=== PATIENT | male | born 1995 | race Caucasian/White ===

== ENCOUNTER → 2016-07-16 | Outpatient (CLI) | payer OTHER ==
--- NOTE | 2016-07-16 14:10 | RADRPT ---
EXAM DATE/TIME: 07/16/2016 13:52 [facility] COMPARISON: No previous studies available for comparison. INDICATIONS : Fall. Right knee pain. Right knee bent inward. MEDICAL HISTORY : None. SURGICAL HISTORY : None. ENCOUNTER: Initial ACUITY: 1 day PAIN SCORE: 5/10 LOCATION: Right knee FINDINGS: Two view examination of the right knee demonstrates no evidence of fracture or dislocation. Bony min eralization is normal. The suprapatellar soft tissues have a normal configuration. CONCLUSION: 1. Negative examination of the knee. Wallace Hernandez MD on July 16, 2016 at 14:08 Board Certified Radiologist. This report was verified electronically.
--- NOTE | 2016-07-16 14:10 | RADRPT ---
EXAM DATE/TIME: 07/16/2016 13:53 [facility] COMPARISON: No previous studies available for comparison. INDICATIONS : Fall. Right lateral ankle pain. MEDICAL HISTORY : None. SURGICAL HISTORY : None. ENCOUNTER: Initial ACUITY: 1 day PAIN SCORE: 5/10 LOCATION: Right lateral ankle FINDINGS: There is no evidence of acute fracture. Bony mineralization is normal. Joint effusion is present. The ankle mortise is intact. Joint spaces are maintained. CONCLUSION: 1. Joint effusion. There is no evidence of acute fracture. Wallace Hernandez MD on July 16, 2016 at 14:08 Board Certified Radiologist. This report was verified electronically.
== END ==
LOC: HRAD 13:34
DX: S89.91XA Unspecified injury of right lower leg, initial encounter (principal); X58.XXXA Exposure to other specified factors, initial encounter
CPT/HCPCS: 73560; 73600